=== PATIENT | male | born 1975 | race Caucasian/White ===

== ENCOUNTER 2017-08-31 05:53 | Day surgery (SDC) | payer OTHER ==
[2017-08-24 17:13] VITALS: BMI 28.9
[2017-08-31] MEDS ORDERED: oxyCODONE HCL 10 MG SUSTAINED ACTING TABLET PO STA (06:44)
[2017-08-31] MEDS ORDERED: BUPIVACAINE HCL/PF 0.5% (5MG/ML) 10 ML VIAL ONE (06:53)
[2017-08-31] MEDS ORDERED: MIDAZOLAM HCL 2 MG/2 ML SINGLE DOSE VIAL ONE ×2 (07:00→08:12)
[2017-08-31] MEDS ORDERED: SUCCINYLCHOLINE CHLORIDE 200 MG/10 ML VIAL ONE (07:03)
[2017-08-31] MEDS ORDERED: ATROPINE SO4 0.4 MG/1 ML VIAL ONE (07:03)
[2017-08-31] MEDS ORDERED: PROPOFOL 20 ML ONE (07:06)
--- NOTE | 2017-08-31 07:15 | HP ---
History & Physical Update - History History: No Change - Physical Physical: No Change - Assessment Assessment: No Change - Plan Plan: No Change (Low back pain radiating down his RLE as well as numbness to same leg)
[2017-08-31] MEDS ORDERED: methylPREDNISolone ACET (DEPO) 40 MG/1 ML VIAL ONE (07:24)
[2017-08-31] MEDS ORDERED: THROMBIN (BOVINE) 5,000 UNIT VIAL TP ONE ×2 (07:25→08:52)
[2017-08-31] MEDS ORDERED: BUPIVACAINE HCL/PF 2.5 MG/ML - 30 ML VIAL IJ ONE (07:25)
[2017-08-31] MEDS ORDERED: LIDOCAINE 1%/EPI 1:100000 (20 ML MULTI DOSE VIAL) ONE (07:25)
[2017-08-31] MEDS ORDERED: LIDOCAINE HCL 1%, 10 MG/ML (20ML VIAL) ONE (07:48)
[2017-08-31] MEDS ORDERED: ePHEDrine SULFATE 50 MG/1 ML AMPULE ONE (08:05)
[2017-08-31] MEDS ORDERED: CLINDAMYCIN PHOSPHATE 600 MG/4 ML VIAL ONE (08:07)
[2017-08-31] MEDS ORDERED: DEXAMETHASONE SOD PHOSPHATE 4 MG/1 ML VIAL ONE (08:19)
[2017-08-31] MEDS ORDERED: LIDOCAINE 1%/EPI 1:100000 (50 ML MULTI DOSE VIAL) INF ONE (08:51)
[2017-08-31] MEDS ORDERED: GELATIN SPONGE,ABSORBABLE 1 GM PACKET TP ONE (08:52)
[2017-08-31] MEDS ORDERED: LIDOCAINE HCL 1%, 10 MG/ML (50 mL VIAL) IJ ONE (08:53)
[2017-08-31] MEDS ORDERED: methylPREDNISolone ACET (DEPO) 40 MG/1 ML VIAL IM ONE (08:54)
[2017-08-31] MEDS ORDERED: ONDANSETRON 4 MG/2 ML VIAL ONE (08:57)
[2017-08-31] MEDS ORDERED: BUPIVACAINE HCL/PF 0.25% (2.5MG/ML) 10 ML VIAL IJ ONE ×2 (09:16→09:52)
--- NOTE | 2017-08-31 09:36 | OP ---
Operative Note - Note: Operative Date: 08/31/17 Pre-Operative Diagnosis: L4/5 spinal stenosis Operation: L4/5 bilateral laminectomy Post-Operative Diagnosis: Same as Pre-op Surgeon: Cornell Marrufo Turbo Electric Operator: Abhishek Amos Anesthesiologist/FIFTH GRADE TEACHER: Hoa Pearson Anesthesia: Spinal Estimated Blood Loss (mls): 20 Fluid Volume Replaced (mls): 1,100 Operative Report Dictated: Yes
--- NOTE | 2017-08-31 09:37 | SURG ---
Surgery Television Production Technician Note Television Production Technician: Abhishek Amos PA-C Date of Service: 08/31/17 Diagnosis: L4/5 spinal stenosis with radiculopathy Procedure: L4/5 bilateral laminectomy I was present for the entirety of the operative procedure. For further detail, please refer to operative report. Visit type - Case Type Case Type: Scheduled Admission - New patient This patient is new to me today: Yes Date on this admission: 08/31/17
[2017-08-31 11:38] VITALS: TEMP 97.6
[2017-08-31 12:34] VITALS: BP 122/76; PULSE 68
[2017-08-31] MEDS ORDERED: oxyCODONE HCL 5 MG TABLET PO PRN ×2 (12:51)
[2017-08-31] MEDS ORDERED: ONDANSETRON 4 MG/2 ML VIAL IVPUSH PRN (12:51)
[2017-08-31] MEDS ORDERED: LACTATED RINGERS SOLUTION 1,000 ML IV SCH (13:00)
--- NOTE | 2017-08-31 20:54 | OP ---
DATE OF OPERATION: 08/31/2017 PREOPERATIVE DIAGNOSIS: Spinal stenosis L4-5. POSTOPERATIVE DIAGNOSIS: Spinal stenosis L4-5. PROCEDURE PERFORMED: Laminectomy L4-5. SURGEON: Cornell Marrufo M.D. MOLDER MACHINE TENDER: Desire Ortiz ESTIMATED BLOOD LOSS: 50 mL INTRAVENOUS FLUIDS: Per anesthesia. ANESTHESIA: Spinal. COMPLICATIONS: There were none. DISPOSITION: Patient brought to the PACU in stable condition. INDICATION FOR SURGERY: The patient is a 42-year-old gentleman who has been suffering from pain from his back down his leg. X-rays and MRI were completed, which showed he has spinal stenosis at L4-5. He had gone through an exhaustive course of treatment for this which included medications, physical therapy, as well as injections. Unfortunately, the pain continued to persist in spite of all this. At this point, risks, benefits, and alternatives were discussed and the patient consented to surgery. OPERATIVE NOTE: Patient is brought to the operating room by the anesthesia staff. After appropriate patient identification is performed, spinal anesthesia was given. Two needles were placed in his back to poly off the L4-5 segment. X-rays taken confirm this is correct. [place] were removed, and 10 mL of lidocaine with epinephrine was injected into his back at this time. His back was prepped and draped in a sterile manner. At this point timeout was completed. An incision was made from the top of L4 down to the bottom of L5. Dissection was carried down to the fascia. Fascia was then split open at this time, and appropriate retractors were then placed in. Then a spinal needle was placed onto the L4 lamina to poly off the L4-5 level. An x-ray was taken to confirm this was correct. The needle was removed, and microscope was brought in. The interspinous ligament at L4-5 was removed. A portion of the L4-L5 spinous process was removed. The segment identified, and portions of the lamina were removed. A complete decompression was performed such that by the end of the procedure the L4-5 nerve roots appear to be well decompressed. All bleeding was well controlled at this time. Steroids were placed over the nerve root, Floseal was placed over that. The fascia was closed with a number 1 Vicryl suture. The subcutaneous tissue was closed with 2-0 Vicryl suture. Skin was closed with 3-0 Monocryl suture. Dermabond was applied. Steri-Strips were applied. Sterile dressing was applied. Patient was placed supine on OR bed, and brought to the PACU in stable condition. CORNELL MARRUFO M.D. /[id number]
== END 2017-08-31 12:39 | disposition home or self-care (01) ==
LOC: FASU 05:53
PROVIDERS: ATTEND Orthopaedic Surgery Orthopaedic Surgery of the Spine
PROC: 01NB0ZZ Release Lumbar Nerve, Open Approach (ICD-10-PCS; principal; 2017-08-31 08:30)
DX: M48.061 Spinal stenosis, lumbar region without neurogenic claudication (principal)
CPT/HCPCS: 72100-TC; 76000-TC

== ENCOUNTER 2021-06-30 09:59 | Emergency (ER) | payer OTHER ==
[2021-06-30 10:16] VITALS: BP 134/96; PULSE 73; TEMP 98.2; BMI 25.4
[2021-06-30] MEDS ORDERED: COLCHICINE 0.6 MG TAB PO ONE ×2 (10:47)
== END 2021-06-30 11:13 | disposition home or self-care (01) ==
LOC: FER 09:59
DX: M10.9 Gout, unspecified (principal)
CPT/HCPCS: 99283-25

== ENCOUNTER 2021-09-23 10:06 | Emergency (ER) | payer OTHER ==
[2021-09-23 10:21] VITALS: BP 170/109; PULSE 60; TEMP 98.4; BMI 25.4
[2021-09-23] MEDS ORDERED: CASIRIVIMAB/IMDEVIMAB 10 ML in SODIUM CHLORIDE 100 ML IVPB ONE (10:22)
== END 2021-09-23 13:56 | disposition home or self-care (01) ==
LOC: JER 10:06 → JCOVINFU 10:06
DX: U07.1 COVID-19 (principal)
CPT/HCPCS: 99284-25; Q0240

== ENCOUNTER 2023-07-20 14:29 | Emergency (ER) | payer OTHER ==
[2023-07-20 14:47] VITALS: BMI 25.4
[2023-07-20] MEDS ORDERED: LIDOCAINE 5% TOPICAL PATCH TP ONE (15:03)
[2023-07-20] MEDS ORDERED: LIDOCAINE 5% TOPICAL PATCH ONE (15:05)
[2023-07-20] MEDS ORDERED: DIPHTH,PERTUSS(ACELL),TET 0.5 ML DISP.SYRIN IM ONE ×2 (15:06→15:10)
[2023-07-20] MEDS ORDERED: SODIUM CHLORIDE 0.9% 1000 ML INFUS.BAG IV ONE (17:53)
[2023-07-20 18:16] LABS: HEMATOCRIT 43.5 % (35.4-49); MCH 31.8 pg (25.7-33.7); MCHC 34.5 g/dl (32.0-35.9); MEAN CELL VOLUME 92.1 fl (80-96); MEAN PLT VOLUME 8.3 fl (7.5-11.1); PLATELET COUNT 127.3 10^3/uL (134-434); RBC 4.72 10^6/uL (4.00-5.60); RDW 13.9 % (11.9-15.9); WHITE BLOOD COUNT 6.9 10^3/uL (4.0-10.8)
[2023-07-20 18:25] LABS: INR 1.18 (0.83-1.09); PROTHROMBIN TIME (PATIENT) 13.7 SEC (9.7-13.0)
[2023-07-20 18:28] LABS: ACTIVATED PTT 32.4 SECONDS (25.2-36.5)
[2023-07-20 18:35] LABS: BILIRUBIN,TOTAL 1.3 mg/dl (0.2-1); BLOOD UREA NITROGEN 8.8 mg/dl (7-18); CALCIUM 9.4 mg/dl (8.5-10.1); CREATININE 0.9 mg/dl (0.6-1.3); POTASSIUM 4.1 mmol/L (3.5-5.1); SGPT/ALT 62.8 U/L (7-52); TOT PROT 7.4 g/dl (6.4-8.2)
[2023-07-20 18:58] LABS: PLATELET ESTIMATE SLT DECREASE
[2023-07-20 20:24] VITALS: TEMP 98
[2023-07-20] MEDS ORDERED: morphine CARPU-JECT 4 MG/1 ML DISP.SYRIN IVPUSH ONE (20:52)
[2023-07-20] MEDS ORDERED: morphine SULFATE 4 MG/ML VIAL ONE (20:53)
[2023-07-20 21:39] VITALS: BP 114/86; PULSE 86; RESP 19
[2023-07-20] MEDS ORDERED: LIDOCAINE PATCH REMOVAL MC SCH (22:00)
== END 2023-07-20 21:41 | disposition short-term general hospital (02) ==
LOC: FER 14:29 → SUPCPDRO 14:29 → FER 21:41
PROC: 3E033GC Introduction of Other Therapeutic Substance into Peripheral Vein, Percutaneous Approach (ICD-10-PCS; principal; 2023-07-20)
PROC: 3E033GC Introduction of Other Therapeutic Substance into Peripheral Vein, Percutaneous Approach (ICD-10-PCS; 2023-07-20)
PROC: 3E0234Z Introduction of Serum, Toxoid and Vaccine into Muscle, Percutaneous Approach (ICD-10-PCS; 2023-07-20)
DX: R07.81 Pleurodynia (principal); S22.42XA Multiple fractures of ribs, left side, initial encounter for closed fracture; S50.312A Abrasion of left elbow, initial encounter; K68.9 Other disorders of retroperitoneum; Z20.822 Contact with and (suspected) exposure to COVID-19
CPT/HCPCS: 0241U-QW; 36415; 70450-TC; 71250-TC; 72125-TC; 80053; 84484; 85027; 85610; 85730; 86850; 86900; 86901; 90715; 93005; 99285-25